=== PATIENT | female | born 1980 | race Caucasian/White ===

== ENCOUNTER 2017-02-27 12:02 | Emergency (ER) | payer OTHER ==
[2017-02-27 12:02] VITALS: BMI 27.3
[2017-02-27 12:10] VITALS: TEMP 98.3
[2017-02-27] MEDS ORDERED: Sodium Chloride 0.9% 1,000 ML IV STA (13:21)
[2017-02-27 13:38] LABS: BASO # 0.1 K/uL (0.0-0.2); BASO % 0.7 % (0.0-2.0); EOS # 0.2 K/uL (0.0-0.7); EOS % 2.1 % (0.0-4.0); HEMOGLOBIN 13.7 g/dL (11.0-16.0); LYMPH # 2.2 K/uL (1.0-4.3); LYMPH % 27.6 % (20.0-40.0); MEAN CELL VOLUME 85.3 fL (81.0-99.0); MEAN CORPUSCULAR HEMOGLOBIN 29.9 pg (27.0-31.0); MEAN PLATELET VOLUME 9.2 fL (7.2-11.7); MONO # 0.5 K/uL (0.0-0.8); MONO % 6.1 % (0.0-10.0); NEUT % 63.5 % (50.0-75.0); RBC 4.58 Mil/uL (3.80-5.20); RED CELL DISTRIBUTION WIDTH 12.7 % (11.5-14.5); WHITE BLOOD COUNT 7.8 K/uL (4.8-10.8)
[2017-02-27 13:53] LABS: ALB/GLOB RATIO 1.3 (1.0-2.1); ALBUMIN 4.4 g/dL (3.5-5.0); ALT/SGPT 38 U/L (9-52); AST/SGOT 22 U/L (14-36); BLOOD UREA NITROGEN 11 mg/dL (7-17); CALCIUM 9.6 mg/dl (8.6-10.4); GFR AFRICAN-AMERICAN > 60; GFR NON-AFRICAN AMERICAN > 60
--- NOTE | 2017-02-27 13:53 | RAD ---
HISTORY: SOB COMPARISON: Chest x-ray performed 06/12/15 TECHNIQUE: Chest, one view. FINDINGS: Examination limited by habitus and hypoinflation. LUNGS: No focal consolidation. Please note that chest x-ray has limited sensitivity for the detection of pulmonary masses. PLEURA: No significant pleural effusion identified. No definite pneumothorax . CARDIOVASCULAR: Heart size appears within normal limits. OSSEOUS STRUCTURES: Degenerative changes. VISUALIZED UPPER ABDOMEN: Unremarkable. OTHER FINDINGS: None. IMPRESSION: No focal consolidation, significant pleural effusion, or definite pneumothorax identified.
[2017-02-27 14:01] LABS: CK-MB 0.52 ng/mL (0.0-3.38)
--- NOTE | 2017-02-27 15:56 | C.PDOC ---
History Of Present Illness 37yo female, presents to ED with complaints of epigastric abdominal pain, headache, chest palpitations, nausea, anxiety and left arm discomfort since earlier today. Patient states her symptoms started after she heard upsetting new about her son during a school meeting. Patient also reports she has a history of anxiety, and arrhythmia which was treated with an ablation 8 years ago. Time Seen by Provider: 02/27/17 12:33 Chief Complaint (Nursing): Anxiety History Per: Patient History/Exam Limitations: no limitations Onset/Duration Of Symptoms: Hrs Current Symptoms Are (Timing): Still Present Associated Symptoms: Anxiety Past Medical History Reviewed: Historical Data, Nursing Documentation, Vital Signs Vital Signs: Last Vital Signs Temp 98.3 F 02/27/17 12:05 Pulse 88 02/27/17 16:36 Resp 18 02/27/17 16:36 BP 116/79 02/27/17 16:36 Pulse Ox 100 02/27/17 19:01 - Medical History PMH: Anxiety, Cardia Arrhythmia, HTN Other Surgeries: ablation Family History: States: Unknown Family Hx - Social History Hx Tobacco Use: No Hx Alcohol Use: No Hx Substance Use: No - Immunization History Hx Tetanus Toxoid Vaccination: No Hx Influenza Vaccination: No Hx Pneumococcal Vaccination: No Review Of Systems Except As Marked, All Systems Reviewed And Found Negative. Cardiovascular: Positive for: Palpitations Gastrointestinal: Positive for: Nausea, Abdominal Pain Musculoskeletal: Positive for: Arm Pain (left) Neurological: Positive for: Headache Psych: Positive for: Anxiety Physical Exam - Physical Exam Appears: Non-toxic, Other (anxious) Skin: Warm, Diaphoretic Head: Atraumatic, Normacephalic Eye(s): bilateral: Normal Inspection Nose: Normal Oral Mucosa: Moist Neck: Supple Chest: Symmetrical Cardiovascular: Rhythm Regular Respiratory: Normal Breath Sounds, No Wheezing Gastrointestinal/Abdominal: Soft, No Tenderness Neurological/Psych: Oriented x3, Normal Speech Additional Physical Exam Comments: During exam, patient reports feeling much better and calm. ED Course And Treatment - Laboratory Results Result Diagrams: 02/27/17 13:33 02/27/17 13:33 ECG Rhythm: Sinus Rhythm, R BBB (incomplete) O2 Sat by Pulse Oximetry: 100 (RA) Pulse Ox Interpretation: Normal Medical Decision Making Medical Decision Making: Impression: Anxiety Plan: -- Prior records reviewed and patient had a stress test done on November 2015 with negative results. Holter report also reviewed from same visit which indicates NSR and Infrequent PVC's. -- Labs -- EKG -- IV Fluids -- CXR Time: 1400 CXR HISTORY: SOB COMPARISON: Chest x-ray performed 06/12/15 TECHNIQUE: Chest, one view. FINDINGS: Examination limited by habitus and hypoinflation. LUNGS: No focal consolidation. Please note that chest x-ray has limited sensitivity for the detection of pulmonary masses. PLEURA: No significant pleural effusion identified. No definite pneumothorax . CARDIOVASCULAR: Heart size appears within normal limits. OSSEOUS STRUCTURES: Degenerative changes. VISUALIZED UPPER ABDOMEN: Unremarkable. OTHER FINDINGS: None. IMPRESSION: No focal consolidation, significant pleural effusion, or definite pneumothorax identified. Time: 1606 Patient reports she feels much better. Stable for discharge home. Disposition - Disposition Referrals: [facility] [Outside] Disposition: HOME/ ROUTINE Disposition Time: 16:19 Condition: IMPROVED Additional Instructions: Follow up with your PMD within 1-2 days. Return to Ed if feel worse. Prescriptions: Alprazolam [Xanax] 0.25 mg PO BID #14 tablet Instructions: Anxiety (ED) Forms: [employer] (Indonesian) - Clinical Impression Clinical Impression: Anxiety
[2017-02-27 16:37] VITALS: BP 116/79; PULSE 88; RESP 18
[2017-02-27 19:01] VITALS: O2SAT 100
--- NOTE | 2017-02-28 23:39 | CARD ---
APPROVED REPORT EKG Measurement Heart [id number] ID [id number] <Conclusion> Normal sinus rhythm Right bundle branch block Moderate voltage criteria for LVH, may be normal variant Abnormal ECG
== END 2017-02-27 16:37 | disposition home or self-care (01) ==
LOC: C.ER 12:02
DX: F41.9 Anxiety disorder, unspecified (principal)
CPT/HCPCS: 71045; 80053; 82550; 82553; 84484; 85025; 93005; 96360; 99284; J7040